=== PATIENT | female | born 1950 | race Caucasian/White ===

== ENCOUNTER 2019-07-25 15:18 | Emergency (ER) | payer OTHER ==
[~2019-07-25] VITALS: Ht 165.1 cm; Wt 72.6 kg
[2019-07-25 18:19] VITALS: BP 128/57
== END 2019-07-25 18:19 | disposition home or self-care (01) ==
LOC: ED 15:18
DX: M54.5 Low back pain (principal); G89.29 Other chronic pain; F41.9 Anxiety disorder, unspecified; R42 Dizziness and giddiness
CPT/HCPCS: J1885; Q0092